=== PATIENT | female | born 1950 | race Caucasian/White ===

== ENCOUNTER 2023-04-10 13:12 | Inpatient (IN) | payer MEDICARE, OTHER ==
[~2023-04-10] VITALS: Ht 162.6 cm; Wt 77.7 kg
[2023-04-10 14:06] LABS: BASO # 0.1 10^3/uL (0.0-0.2); EOS # 0.1 10^3/uL (0.0-0.5); EOS % 2.7 % (0.0-3.0); HEMATOCRIT 39.8 % (36.0-47.0); HEMOGLOBIN 13.4 g/dl (12.0-15.5); LYMPH # 1.9 10^3/uL (1.5-5.0); LYMPH % 38.4 % (24.0-44.0); MEAN CORPUSCULAR HEMOGLOBIN 31.8 pg (27.0-33.0); MEAN CORPUSCULAR HGB CONC 33.7 g/dl (32.0-36.5); MEAN CORPUSCULAR VOLUME 94.3 fl (80.0-96.0); MONO # 0.6 10^3/uL (0.0-0.8); MONO % 12.1 % (2.0-8.0); NEUTROPHILS # 2.2 10^3/uL (1.5-8.5); NEUTROPHILS % 45.2 % (36.0-66.0); PLATELET COUNT, AUTOMATED 297 10^3/uL (150-450); RED BLOOD COUNT 4.22 10^6/uL (4.00-5.40); WHITE BLOOD COUNT 4.9 10^3/uL (4.0-10.0)
[2023-04-10] MEDS ORDERED: ISOVUE-370 76% 100ML VIAL As Ordered ONE (14:07)
[2023-04-10 14:22] LABS: INR 1.16; PROTHROMBIN TIME 14.4 SECONDS (12.5-14.5)
[2023-04-10 14:23] LABS: PARTIAL THROMBOPLASTIN TIME 30.3 SECONDS (24.8-34.2)
[2023-04-10 14:33] LABS: BLOOD UREA NITROGEN 18 MG/DL (9-23); CALCIUM LEVEL 9.6 MG/DL (8.3-10.6); CARBON DIOXIDE LEVEL 25 MMOL/L (20-31); CHLORIDE LEVEL 106 MMOL/L (98-107); CREATININE FOR GFR 0.81 MG/DL (0.55-1.30); GLOMERULAR FILTRATION RATE > 60.0 (>39); GLUCOSE, FASTING 92 MG/DL (74-106); POTASSIUM SERUM 4.3 MMOL/L (3.5-5.1); SODIUM LEVEL 138 MMOL/L (136-145)
[2023-04-10 14:36] LABS: FREE T4 0.97 NG/DL (0.89-1.76); THYROID STIMULATING HORMONE 2.883 uIU/ML (0.55-4.78)
[2023-04-10 14:44] LABS: RSV AMPLIFICATION NEGATIVE (NEGATIVE)
[2023-04-10 15:05] LABS: CK-MB VALUE MASS < 1.0 NG/ML (<3.6)
[2023-04-10 15:08] LABS: CPK CREATINE PHOSPHOKINASE 62 U/L (34-145); MB/CK RELATIVE INDEX 1.61 (< OR =4)
[2023-04-10 15:34] LABS: CK-MB VALUE MASS < 1.0 NG/ML (<3.6)
[2023-04-10 15:37] LABS: CPK CREATINE PHOSPHOKINASE 64 U/L (34-145); MB/CK RELATIVE INDEX 1.56 (< OR =4)
[2023-04-10] MEDS ORDERED: ASPIRIN 81MG CHEW TABLET PO ONE (16:30)
[2023-04-10] MEDS ORDERED: MED REC IN PROGRESS XX SCH (16:35)
[2023-04-10] MEDS ORDERED: VALA500T5 PO (17:04)
[2023-04-10] MEDS ORDERED: IBUP-1022 PO (17:04)
[2023-04-10] MEDS ORDERED: VITA200016 PO (17:04)
[2023-04-10] MEDS ORDERED: BACI1CAP PO (17:04)
[2023-04-10] MEDS ORDERED: hydrALAZINE 20MG/ML 1ML VIAL IV PRN (17:05)
[2023-04-10] MEDS ORDERED: LORazepam 2 MG TAB PO PRN (17:05)
[2023-04-10] MEDS ORDERED: med rec comment (17:06)
[2023-04-10] MEDS ORDERED: HOME MED LIST COMPLETE! XX SCH (17:10)
[2023-04-10 17:45] LABS: PROCALCITONIN <0.04 ng/ml
[2023-04-10] MEDS: CLOPIDOGREL 75 MG TAB PO SCH (17:59)
[2023-04-10 18:48] LABS: VITAMIN B12 LEVEL 637 PG/ML (211-911)
[2023-04-10 19:03] LABS: HEMOGLOBIN A1c 5.3 % (4.0-6.0)
[2023-04-10] MEDS: ATORVASTATIN 20 MG TAB PO SCH (21:12)
[2023-04-10] MEDS: THIAMINE 100 MG TAB PO SCH (21:12)
[2023-04-10 22:51] VITALS: BP 122/88; TEMP 98.5; O2SAT 96
[2023-04-11] VITALS (7 sets, daily range): BP systolic 121–148; BP diastolic 60–79; TEMP 96.3–98; O2SAT 95–96
[2023-04-11 06:01] LABS: HEMATOCRIT 39.7 % (36.0-47.0); HEMOGLOBIN 13.5 g/dl (12.0-15.5); MEAN CORPUSCULAR HEMOGLOBIN 31.8 pg (27.0-33.0); MEAN CORPUSCULAR VOLUME 93.4 fl (80.0-96.0); PLATELET COUNT, AUTOMATED 288 10^3/uL (150-450); RED BLOOD COUNT 4.25 10^6/uL (4.00-5.40); WHITE BLOOD COUNT 5.3 10^3/uL (4.0-10.0)
[2023-04-11 06:25] LABS: BLOOD UREA NITROGEN 14 MG/DL (9-23); CALCIUM LEVEL 9.4 MG/DL (8.3-10.6); CARBON DIOXIDE LEVEL 26 MMOL/L (20-31); CHLORIDE LEVEL 108 MMOL/L (98-107); CHOLESTEROL LEVEL 288 MG/DL (<200); CREATININE FOR GFR 0.84 MG/DL (0.55-1.30); GLOMERULAR FILTRATION RATE > 60.0 (>39); GLUCOSE, FASTING 104 MG/DL (74-106); HDL CHOLESTEROL 61.2 MG/DL (>40); LDL CHOLESTEROL 203.2 MG/DL (<100); NON-HDL-C 226.8 MG/DL; POTASSIUM SERUM 4.4 MMOL/L (3.5-5.1); SODIUM LEVEL 140 MMOL/L (136-145); TRIGLYCERIDES LEVEL 118 MG/DL (<150)
[2023-04-11 09:05] LABS: MAGNESIUM LEVEL 2.1 MG/DL (1.8-2.4)
[2023-04-11] MEDS: CLOPIDOGREL 75 MG TAB PO SCH (09:50)
[2023-04-11] MEDS: FOLIC ACID 1MG TAB PO SCH (09:50)
[2023-04-11] MEDS: THIAMINE 100 MG TAB PO SCH ×2 (09:50→21:26)
[2023-04-11] MEDS: ENOXAPARIN 40MG/0.4ML SYRINGE (J1650 PER 10MG) SC SCH (09:50)
[2023-04-11] MEDS: ASPIRIN 81MG CHEW TABLET PO SCH (09:50)
[2023-04-11] MEDS: MULTIVITAMINS/MINERALS THERAP 1 TAB PO SCH (09:50)
[2023-04-11] MEDS: ATORVASTATIN 20 MG TAB PO SCH (21:26)
[2023-04-12] VITALS: BP 106/68; TEMP 96.7; O2SAT 96
[2023-04-12 04:00] VITALS: BP 112/64; TEMP 96.5; O2SAT 97
[2023-04-12 08:01] VITALS: BP 122/82; TEMP 97.5; O2SAT 94
[2023-04-12] MEDS: ENOXAPARIN 40MG/0.4ML SYRINGE (J1650 PER 10MG) SC SCH (09:00)
[2023-04-12] MEDS ORDERED: ASPI81TA26 PO (09:48)
[2023-04-12] MEDS ORDERED: THIA100TA PO (09:48)
[2023-04-12] MEDS ORDERED: LIPI80TA PO (09:48)
[2023-04-12] MEDS ORDERED: CLOP75TA2 PO (09:48)
[2023-04-12] MEDS ORDERED: FOLI1TAB11 PO (09:48)
[2023-04-12] MEDS: THIAMINE 100 MG TAB PO SCH (09:59)
[2023-04-12] MEDS: FOLIC ACID 1MG TAB PO SCH (09:59)
[2023-04-12] MEDS: MULTIVITAMINS/MINERALS THERAP 1 TAB PO SCH (09:59)
[2023-04-12] MEDS: CLOPIDOGREL 75 MG TAB PO SCH (09:59)
[2023-04-12] MEDS: ASPIRIN 81MG CHEW TABLET PO SCH (09:59)
== END 2023-04-12 10:35 | disposition home or self-care (01) | DRG 65 ==
LOC: M ED 13:12 → M ED INP 17:30 → M PCU 22:40
PROVIDERS: ADMIT Internal Medicine; ATTEND Internal Medicine
PROC: B246ZZZ Ultrasonography of Right and Left Heart (ICD-10-PCS; principal; 2023-04-11)
DX: I63.81 Other cerebral infarction due to occlusion or stenosis of small artery (principal); I16.1 Hypertensive emergency; J98.11 Atelectasis; E78.5 Hyperlipidemia, unspecified; M19.90 Unspecified osteoarthritis, unspecified site; R20.0 Anesthesia of skin; F10.20 Alcohol dependence, uncomplicated; R91.8 Other nonspecific abnormal finding of lung field; Z88.0 Allergy status to penicillin; Z79.899 Other long term (current) drug therapy; R00.1 Bradycardia, unspecified; I10 Essential (primary) hypertension